=== PATIENT | male | born 1955 | race Caucasian/White ===

== ENCOUNTER 2016-08-31 13:56 | Emergency (ER) | payer MEDICAID ==
[~2016-08-31] VITALS: Ht 175.3 cm; Wt 90.0 kg
[2016-08-31] MEDS ORDERED: ONDANSETRON HCL 4MG TABLET PO ONE (14:30)
[2016-08-31] MEDS ORDERED: SODIUM CHLORIDE 0.9% 500 ML IV ONE (14:32)
[2016-08-31] MEDS ORDERED: ONDANSETRON 4MG ODT PO STA (14:32)
[2016-08-31 15:39] LABS: BASOPHILS % 0.6 % (0.0-2.0); EOSINOPHILS % 0.6 % (0.0-5.0); HEMATOCRIT. 44.5 % (42.0-52.0); HEMOGLOBIN. 15.8 g/dL (14.0-18.0); LYMPHOCYTES % 31.9 % (20.0-50.0); MEAN CORPUSCULAR HEMOGLOBIN 33.4 pg (28.0-32.0); MEAN CORPUSCULAR VOLUME 93.8 fL (80.0-94.0); MEAN PLATELET VOLUME 7.7 fl (7.4-10.4); MONOCYTES % 6.4 % (2.0-8.0); NEUTROPHILS % 60.5 % (40.0-76.0); PLATELET 125 x1000/uL (130-400); RED BLOOD CELL COUNT 4.74 mill/uL (4.7-6.1); RED CELL DISTRIBUTION WIDTH 13.4 % (11.6-14.6)
[2016-08-31 15:42] LABS: CHLORIDE 97 mEq/L (98-107)
[2016-08-31 15:48] LABS: CARBON DIOXIDE 24 mEq/L (21-32); ETHANOL BLOOD 263 mg/dL
[2016-08-31 16:32] VITALS: BP 160/89
== END 2016-08-31 16:36 | disposition home or self-care (01) ==
LOC: ER 15:24
DX: F10.129 Alcohol abuse with intoxication, unspecified (principal); Z88.0 Allergy status to penicillin; Y90.8 Blood alcohol level of 240 mg/100 ml or more
CPT/HCPCS: 36415; 80053; 85025; 99284; G0482; J7040; Q0162